=== PATIENT | male | born 1955 | race Caucasian/White ===

== ENCOUNTER 2019-02-26 10:10 | Outpatient (CLI) | payer OTHER ==
--- NOTE | 2019-02-26 12:16 | RAD ---
CHEST 2 VIEWS: Date: 02/26/19 HISTORY: Wheezing. COMPARISON: Radiograph dated 03/13/15. FINDINGS: Heart size mildly enlarged. Multiple midline sternotomy wires. Incomplete evaluation of ACDF hardware lower cervical spine. No focal confluent air space consolidation, pneumothorax, or effusion. Flowing bridging anterior oste ophytes of the thoracic spine. IMPRESSION: Mild cardiomegaly. No evidence for pneumonia. POS: [facility]
== END 2019-02-26 10:11 | disposition home or self-care (01) ==
LOC: BICRAD 10:10
DX: R06.2 Wheezing (principal); E11.9 Type 2 diabetes mellitus without complications; I51.7 Cardiomegaly
CPT/HCPCS: 71046

== ENCOUNTER 2022-01-30 10:26 | Outpatient (CLI) | payer MEDICARE ==
[2022-01-30 19:53] LABS: SARS-CoV-2 PCR by NAA Not Detected (NotDetected)
== END 2022-01-30 10:27 | disposition home or self-care (01) ==
LOC: LABBT 10:26
PROVIDERS: ATTEND Anesthesiology Pain Medicine
DX: Z20.822 Contact with and (suspected) exposure to COVID-19 (principal)
CPT/HCPCS: U0003; U0005

== ENCOUNTER 2022-02-03 10:04 | Day surgery (SDC) | payer MEDICARE ==
[2022-02-01 10:48] VITALS: BMI 33.3
[2022-02-03] MEDS ORDERED: Magnevist 469MG/ML 20 ML VIAL ONE (10:13)
[2022-02-03] MEDS ORDERED: Midazolam HCl 2 mg/2 ml Vial ONE (11:52)
[2022-02-03] MEDS ORDERED: Famotidine/PF 20 mg/2ml Vial ONE (11:53)
[2022-02-03] MEDS ORDERED: fentaNYL Citrate/PF 100 MCG/2 ML SYRINGE ONE (11:53)
[2022-02-03] MEDS ORDERED: Ondansetron PF 4 MG/2 ML Vial ONE (12:45)
[2022-02-03] MEDS ORDERED: PROPOFOL 200 MG/20 ML VIAL ONE (12:45)
[2022-02-03] MEDS ORDERED: Lidocaine 1% PF 5 ML VIAL ONE (12:45)
[2022-02-03] MEDS ORDERED: HYDROcodone/Acetaminophen 5/325 mg Tablet ONE (15:30)
== END 2022-02-03 15:49 | disposition home or self-care (01) ==
LOC: MRI 10:04
PROVIDERS: ATTEND Anesthesiology Pain Medicine
DX: M47.812 Spondylosis without myelopathy or radiculopathy, cervical region (principal); M48.062 Spinal stenosis, lumbar region with neurogenic claudication; M50.31 Other cervical disc degeneration, high cervical region; M48.02 Spinal stenosis, cervical region; M47.816 Spondylosis without myelopathy or radiculopathy, lumbar region; M51.36 Other intervertebral disc degeneration, lumbar region; E11.9 Type 2 diabetes mellitus without complications; I10 Essential (primary) hypertension; I25.10 Atherosclerotic heart disease of native coronary artery without angina pectoris; G47.33 Obstructive sleep apnea (adult) (pediatric); E78.5 Hyperlipidemia, unspecified; M19.90 Unspecified osteoarthritis, unspecified site; K21.9 Gastro-esophageal reflux disease without esophagitis; N40.1 Benign prostatic hyperplasia with lower urinary tract symptoms; N39.41 Urge incontinence; Z79.84 Long term (current) use of oral hypoglycemic drugs; Z79.899 Other long term (current) drug therapy; Z88.8 Allergy status to other drugs, medicaments and biological substances; Z95.1 Presence of aortocoronary bypass graft; Z98.1 Arthrodesis status
CPT/HCPCS: 36416; 72141; 72158; 82565; 82575; 84520; A9579; J2250; J2405; J2704; S0028

== ENCOUNTER 2022-03-02 08:50 | Outpatient (CLI) | payer MEDICARE | END 2022-03-02 08:51 | disposition home or self-care (01) | LOC: BICRAD 08:50 | PROVIDERS: ATTEND Neurological Surgery | DX: M47.22 Other spondylosis with radiculopathy, cervical region (principal); M47.26 Other spondylosis with radiculopathy, lumbar region; Z98.890 Other specified postprocedural states | CPT/HCPCS: 72050; 72110 ==

== ENCOUNTER 2022-08-08 14:54 | Outpatient (CLI) | payer MEDICARE | END 2022-08-08 14:55 | disposition home or self-care (01) | LOC: CT 14:54 | PROVIDERS: ATTEND Anesthesiology Pain Medicine | DX: M48.54XA Collapsed vertebra, not elsewhere classified, thoracic region, initial encounter for fracture (principal); M47.812 Spondylosis without myelopathy or radiculopathy, cervical region; M47.814 Spondylosis without myelopathy or radiculopathy, thoracic region; M48.14 Ankylosing hyperostosis [Forestier], thoracic region; R91.1 Solitary pulmonary nodule; Z98.1 Arthrodesis status | CPT/HCPCS: 70450; 72125; 72128 ==

== ENCOUNTER 2022-08-16 13:37 | Outpatient (CLI) | payer MEDICARE | END 2022-08-16 13:38 | disposition home or self-care (01) | LOC: BICULT 13:37 | PROVIDERS: ATTEND Internal Medicine Endocrinology, Diabetes & Metabolism | DX: E01.0 Iodine-deficiency related diffuse (endemic) goiter (principal); E04.2 Nontoxic multinodular goiter | CPT/HCPCS: 76536 ==

== ENCOUNTER 2023-10-30 06:57 | Outpatient (CLI) | payer MEDICARE | END 2023-10-30 06:58 | disposition home or self-care (01) | LOC: BICULT 06:57 | PROVIDERS: ATTEND Internal Medicine Endocrinology, Diabetes & Metabolism | DX: E04.2 Nontoxic multinodular goiter (principal) | CPT/HCPCS: 76536 ==

== ENCOUNTER 2024-04-23 07:32 | Outpatient (CLI) | payer MEDICARE | END 2024-04-23 07:33 | disposition home or self-care (01) | LOC: CT 07:32 | PROVIDERS: ATTEND Internal Medicine Critical Care Medicine | DX: R91.1 Solitary pulmonary nodule (principal) | CPT/HCPCS: 71250 ==

== ENCOUNTER 2024-07-21 06:08 | Day surgery (SDC) | payer MEDICARE ==
[2024-07-14 10:48] VITALS: BMI 25.7
[2024-07-21] MEDS ORDERED: Verapamil 5 MG/2 ML VIAL ONE (06:22)
[2024-07-21] MEDS ORDERED: Adenosine 6 mg (2 mL) VIAL ONE (06:22)
[2024-07-21] MEDS ORDERED: Midazolam HCl 2 mg/2 ml Vial ONE (06:22)
[2024-07-21] MEDS ORDERED: fentaNYL 50 mcg/mL 1 mL Vial ONE (06:22)
[2024-07-21] MEDS ORDERED: Heparin 10,000 UNITS/ 10 ML VIAL ONE (06:23)
[2024-07-21] MEDS ORDERED: Nitroglycerin 50 MG/250 ML BOT 0 ML ONE (06:23)
[2024-07-21] MEDS ORDERED: Iopamidol 370 76% 100 ML VIAL ONE (10:06)
== END 2024-07-21 13:01 | disposition home or self-care (01) ==
LOC: SDC 06:08
PROVIDERS: ATTEND Internal Medicine Cardiovascular Disease
PROC: 4A023N7 Measurement of Cardiac Sampling and Pressure, Left Heart, Percutaneous Approach (ICD-10-PCS; principal; 2024-07-21)
PROC: B205YZZ Plain Radiography of Left Heart using Other Contrast (ICD-10-PCS; 2024-07-21)
DX: R06.9 Unspecified abnormalities of breathing (principal); R06.02 Shortness of breath; I25.10 Atherosclerotic heart disease of native coronary artery without angina pectoris; N40.0 Benign prostatic hyperplasia without lower urinary tract symptoms; G47.33 Obstructive sleep apnea (adult) (pediatric); I10 Essential (primary) hypertension; E11.9 Type 2 diabetes mellitus without complications; E78.5 Hyperlipidemia, unspecified; K21.9 Gastro-esophageal reflux disease without esophagitis; J45.909 Unspecified asthma, uncomplicated; I44.7 Left bundle-branch block, unspecified; F32.A Depression, unspecified; Z98.890 Other specified postprocedural states; Z79.899 Other long term (current) drug therapy; Z95.1 Presence of aortocoronary bypass graft; Z88.8 Allergy status to other drugs, medicaments and biological substances; Z79.51 Long term (current) use of inhaled steroids; Z79.890 Hormone replacement therapy; Z79.02 Long term (current) use of antithrombotics/antiplatelets
CPT/HCPCS: 93459; C1769 ×2; C1887; C1894; J2250; J3010; 99152; J0153; J1644

== ENCOUNTER 2024-10-13 10:17 | Day surgery (SDC) | payer MEDICARE ==
[2024-10-10 14:03] VITALS: BMI 11.7
[2024-10-13] MEDS ORDERED: Midazolam HCl 2 mg/2 ml Vial SLOW IVP SCH (11:35)
[2024-10-13] MEDS ORDERED: Midazolam HCl 2 mg/2 ml Vial ONE (12:15)
[2024-10-13] MEDS ORDERED: Magnevist 469MG/ML 20 ML VIAL ONE (12:18)
[2024-10-13] MEDS ORDERED: Ondansetron PF 4 MG/2 ML Vial ONE (12:30)
[2024-10-13] MEDS ORDERED: Lidocaine 1% PF 5 ML VIAL ONE (12:30)
[2024-10-13] MEDS ORDERED: PROPOFOL 200 MG/20 ML VIAL ONE ×2 (12:30)
[2024-10-13] MEDS ORDERED: PHENYLEPHRINE-NS 100 MCG/ML 10 ML SYRINGE ONE (12:30)
== END 2024-10-13 14:43 | disposition home or self-care (01) ==
LOC: MRI 10:17
PROVIDERS: ATTEND Nurse Practitioner Family
DX: M48.062 Spinal stenosis, lumbar region with neurogenic claudication (principal); M21.372 Foot drop, left foot; E78.00 Pure hypercholesterolemia, unspecified; I10 Essential (primary) hypertension; F32.A Depression, unspecified; E11.9 Type 2 diabetes mellitus without complications; F41.9 Anxiety disorder, unspecified; K21.9 Gastro-esophageal reflux disease without esophagitis; G47.33 Obstructive sleep apnea (adult) (pediatric); I25.10 Atherosclerotic heart disease of native coronary artery without angina pectoris; J45.909 Unspecified asthma, uncomplicated; Z98.890 Other specified postprocedural states; Z88.8 Allergy status to other drugs, medicaments and biological substances; Z87.891 Personal history of nicotine dependence; Z79.84 Long term (current) use of oral hypoglycemic drugs; Z79.899 Other long term (current) drug therapy; Z95.1 Presence of aortocoronary bypass graft; Z98.1 Arthrodesis status; Z90.49 Acquired absence of other specified parts of digestive tract
CPT/HCPCS: 72158; J2250; J2405; J2704

== ENCOUNTER 2024-11-07 08:58 | Outpatient (CLI) | payer MEDICARE | END 2024-11-07 08:59 | disposition home or self-care (01) | LOC: BICRAD 08:58 | PROVIDERS: ATTEND Physician Assistant Surgical | DX: M48.061 Spinal stenosis, lumbar region without neurogenic claudication (principal); M47.816 Spondylosis without myelopathy or radiculopathy, lumbar region | CPT/HCPCS: 72120 ==

== ENCOUNTER 2025-04-20 15:30 | Inpatient (IN) | payer MEDICARE ==
[2025-04-20 15:54] VITALS: BMI 25.7
[2025-04-21] MEDS ORDERED: PROPOFOL 20 ML ONE (06:12)
[2025-04-21] MEDS ORDERED: fentaNYL PF 100 MCG/2 ML SYRINGE ONE ×4 (06:12→12:08)
[2025-04-21] MEDS ORDERED: Thrombin 5000 UNITS/5 ML VIAL ONE (06:13)
[2025-04-21] MEDS ORDERED: Lidocaine 1% PF 5 ML VIAL ONE (06:17)
[2025-04-21] MEDS ORDERED: Rocuronium Bromide 10 MG/ML (10ML VIAL) ONE (06:17)
[2025-04-21] MEDS ORDERED: Bacitracin Zinc Ointment 30 gm TUBE ONE (06:24)
[2025-04-21] MEDS ORDERED: CEFAZOLIN 2 GM VIAL ONE ×2 (06:32→14:58)
[2025-04-21] MEDS ORDERED: PHENYLEPHRINE-NS 100 MCG/ML 10 ML SYRINGE ONE (07:45)
[2025-04-21] MEDS ORDERED: Ondansetron PF 4 MG/2 ML Vial ONE (09:31)
[2025-04-21] MEDS ORDERED: SUGAMMADEX SODIUM 200 MG/2 ML VIAL ONE (09:33)
[2025-04-21] MEDS ORDERED: Glycopyrrolate 0.2 MG/ML 5 ML SYRINGE ONE (09:52)
[2025-04-21] MEDS ORDERED: Bisacodyl 10 MG SUPP PR PRN (10:24)
[2025-04-21] MEDS ORDERED: Milk Of Magnesia 30 ML UDCUP PO PRN (10:24)
[2025-04-21] MEDS ORDERED: HYDROmorphone 0.5 MG/0.5 ML SYRINGE ONE ×3 (14:43→17:39)
[2025-04-21] MEDS ORDERED: HYDROcodone/Acetaminophen 10/325 mg Tablet ONE (16:36)
[2025-04-21] MEDS: HYDROcodone/Acetaminophen 10/325 mg Tablet PO PRN (16:38)
[2025-04-21] MEDS: Aspirin 81 mg Enteric Coated Tablet PO SCH (19:57)
[2025-04-21] MEDS: Ondansetron PF 4 MG/2 ML Vial IVP PRN (19:59)
[2025-04-21] MEDS: HYDROcodone/Acetaminophen 7.5/325 mg Tablet PO PRN (21:22)
[2025-04-21] MEDS: Gabapentin 300 MG CAP PO SCH (23:24)
[2025-04-22 07:30] LABS: #Basophils Less than 0.03 10x3/uL (0.0-0.2); #Eosinophils Less than 0.03 10x3/uL (0.0-0.7); #Monocytes 1.44 10x3/uL (0.11-0.59); #Neutrophils 9.03 10x3/uL (1.40-6.50); %Basophils 0.1 % (0.0-1.0); %Eosinophils 0.1 % (0.0-10.0); %Lymphocytes 15.3 % (21.0-51.0); %Monocytes 11.6 % (0.0-10.0); %Neutrophils 72.5 % (42.0-75.0); Hematocrit 36.2 % (42.0-52.0); Hemoglobin 12.4 g/dL (14.0-18.0); Mean Corpuscular Hemoglobin 29.5 pg (27.0-31.0); Mean Corpuscular Volume 86.0 fL (78.0-98.0); Platelet Count 182 10x3/uL (130-400); Red Blood Cell (RBC) Count 4.21 mill/uL (4.70-6.10); White Blood Cell (WBC) Count 12.45 10x3/uL (4.8-10.8)
[2025-04-22 07:49] LABS: Anion Gap 13 mmol/L (10-20); BUN (Urea Nitrogen) 13 mg/dL (8.4-25.7); Calc. Creatinine Clearance 121 mL/min (70-130); Calcium 8.6 mg/dL (7.8-10.44); Carbon Dioxide 28 mmol/L (23-31); Chloride 99 mmol/L (98-107); Glucose 184 mg/dL (80-115); Potassium 4.1 mmol/L (3.5-5.1); Sodium 136 mmol/L (136-145)
[2025-04-22] MEDS ORDERED: Dextrose 50% Abboject 50 ML SYRINGE SLOW IVP PRN (08:27)
[2025-04-22] MEDS ORDERED: Glucagon 1 MG/ML KIT IM PRN (08:27)
[2025-04-22] MEDS: Spironolactone 25 MG TAB PO SCH (09:30)
[2025-04-22] MEDS: Pantoprazole 40 MG DR.TAB PO SCH (09:30)
[2025-04-22] MEDS: Gabapentin 300 MG CAP PO SCH (09:30)
[2025-04-22] MEDS: metFORMIN 500 MG TAB PO SCH (16:51)
[2025-04-22] MEDS: Rosuvastatin 20 MG TAB PO SCH (20:52)
[2025-04-22] MEDS: Metoprolol Succinate XL 25 MG ER.TAB PO SCH (20:53)
[2025-04-23 13:07] VITALS: BP 132/62; TEMP 97.5
== END 2025-04-23 15:07 | disposition home or self-care (01) | DRG 472 ==
LOC: SURG A 04-21 05:43
PROVIDERS: ADMIT Neurological Surgery; ATTEND Neurological Surgery
PROC: 0RG2071 Fusion of 2 or more Cervical Vertebral Joints with Autologous Tissue Substitute, Posterior Approach, Posterior Column, Open Approach (ICD-10-PCS; principal; 2025-04-21)
PROC: 00NW0ZZ Release Cervical Spinal Cord, Open Approach (ICD-10-PCS; 2025-04-21)
PROC: 3E03329 Introduction of Other Anti-infective into Peripheral Vein, Percutaneous Approach (ICD-10-PCS; 2025-04-21)
PROC: 3E033XZ Introduction of Vasopressor into Peripheral Vein, Percutaneous Approach (ICD-10-PCS; 2025-04-21)
DX: M50.01 Cervical disc disorder with myelopathy, high cervical region (principal); G95.20 Unspecified cord compression; F41.9 Anxiety disorder, unspecified; J45.909 Unspecified asthma, uncomplicated; E11.9 Type 2 diabetes mellitus without complications; K21.9 Gastro-esophageal reflux disease without esophagitis; E78.5 Hyperlipidemia, unspecified; Z98.890 Other specified postprocedural states; Z95.1 Presence of aortocoronary bypass graft; I10 Essential (primary) hypertension; Z90.49 Acquired absence of other specified parts of digestive tract; Z79.82 Long term (current) use of aspirin; Z79.899 Other long term (current) drug therapy; Z79.84 Long term (current) use of oral hypoglycemic drugs; Z88.8 Allergy status to other drugs, medicaments and biological substances
CPT/HCPCS: 36415; 36416; 80048; 85025; 85610; 85730; 93970; C1713; C1889; J0169; J0665; J1100; J1171; J1815; J2250; J2270; J2405; J2704; J3010; J3373

== ENCOUNTER 2025-04-29 15:01 | Observation (INO) | payer MEDICARE ==
[2025-04-29] MEDS ORDERED: Acetaminophen/Codeine 30-300mg Tablet PO PRN (15:27)
[2025-04-29] MEDS ORDERED: Acetaminophen 325 MG TAB PO PRN (15:27)
[2025-04-29] MEDS ORDERED: Guaifenesin DM 100-10/5 ML UDCUP PO PRN (15:27)
[2025-04-29] MEDS ORDERED: Electrolyte Replacement Protocol 1 EACH FS PRN (15:30)
[2025-04-29] MEDS ORDERED: Dextrose 50% Abboject 50 ML SYRINGE SLOW IVP PRN (15:31)
[2025-04-29] MEDS ORDERED: Glucagon 1 MG/ML KIT IM PRN (15:31)
[2025-04-29] MEDS: Acetaminophen/Codeine 30-300mg Tablet PO PRN (15:54)
[2025-04-29] MEDS: Naloxegol 12.5 MG TAB PO SCH (15:54)
[2025-04-29] MEDS: GoLYTELY 4,000 ml Bottle PO SCH (15:57)
[2025-04-29] MEDS: metFORMIN 500 MG TAB PO SCH (15:57)
[2025-04-29 16:08] LABS: Anion Gap 22 mmol/L (10-20); BUN (Urea Nitrogen) 21 mg/dL (8.4-25.7); Calc. Creatinine Clearance 0 mL/min (70-130); Calcium 9.3 mg/dL (7.8-10.44); Carbon Dioxide 21 mmol/L (23-31); Chloride 98 mmol/L (98-107); Glucose 176 mg/dL (80-115); Potassium 3.6 mmol/L (3.5-5.1); Sodium 137 mmol/L (136-145)
[2025-04-29] MEDS: Ondansetron PF 4 MG/2 ML Vial IVP PRN (16:46)
[2025-04-29] MEDS: PNEUMOC 20-VAL CONJ-DIP CRM/PF 0.5 ML SYRINGE IM ONE (17:49)
[2025-04-29 19:01] VITALS: BMI 24.8
[2025-04-29] MEDS: Famotidine 20 MG TAB PO SCH (20:15)
[2025-04-29] MEDS: Metoprolol Succinate XL 25 MG ER.TAB PO SCH (20:15)
[2025-04-30 04:52] LABS: Anion Gap 17 mmol/L (10-20); BUN (Urea Nitrogen) 13 mg/dL (8.4-25.7); Calc. Creatinine Clearance 122 mL/min (70-130); Calcium 9.0 mg/dL (7.8-10.44); Carbon Dioxide 25 mmol/L (23-31); Chloride 97 mmol/L (98-107); Glucose 124 mg/dL (80-115); Potassium 3.5 mmol/L (3.5-5.1); Sodium 135 mmol/L (136-145)
[2025-04-30] MEDS: Naloxegol 12.5 MG TAB PO SCH (08:24)
[2025-04-30 12:55] VITALS: BP 153/73; TEMP 97.7
== END 2025-04-30 15:10 | disposition home or self-care (01) ==
LOC: T4-B 15:08
PROVIDERS: ADMIT Family Medicine; ATTEND Internal Medicine
DX: K56.41 Fecal impaction (principal); R33.9 Retention of urine, unspecified; I10 Essential (primary) hypertension; E11.9 Type 2 diabetes mellitus without complications; E78.00 Pure hypercholesterolemia, unspecified; F32.A Depression, unspecified; F41.9 Anxiety disorder, unspecified; K21.9 Gastro-esophageal reflux disease without esophagitis; G47.30 Sleep apnea, unspecified; G89.29 Other chronic pain; M54.9 Dorsalgia, unspecified; Z95.1 Presence of aortocoronary bypass graft; Z90.49 Acquired absence of other specified parts of digestive tract; Z88.8 Allergy status to other drugs, medicaments and biological substances; Z79.84 Long term (current) use of oral hypoglycemic drugs; Z79.85 Long-term (current) use of injectable non-insulin antidiabetic drugs; Z79.82 Long term (current) use of aspirin; Z79.1 Long term (current) use of non-steroidal anti-inflammatories (NSAID); Z79.899 Other long term (current) drug therapy
CPT/HCPCS: 80048 ×2; 82962 ×2; J2270; J2405; J7120; 36415; 36416